=== PATIENT | male | born 1990 | race Caucasian/White ===

== ENCOUNTER 2017-05-22 12:42 | Day surgery (SDC) | payer OTHER ==
[~2017-05-22] VITALS: Ht 170.2 cm; Wt 94.5 kg
[2017-05-22] MEDS: Lactated Ringer's 1,000 ML IV SCH ×4 (05:00→18:30)
[2017-05-22] MEDS: CeFAZolin 2 Gm/50 mL D5W IV Premix IV SCH ×2 (06:00→19:15)
[2017-05-22] MEDS ORDERED: Ondansetron 2 mg/mL 2 mL Inj ONE (12:43)
[2017-05-22] MEDS ORDERED: Dexamethasone 4 mg/mL Inj ONE (12:43)
[2017-05-22] MEDS ORDERED: fentaNYL-PF 50 mCg/mL 2 mL Inj ONE (12:43)
[2017-05-22] MEDS ORDERED: Propofol 10,000 mCg/mL 20 mL Inj ONE (12:43)
[2017-05-22] MEDS ORDERED: Bupivacaine-MPF 0.5% 30 mL Inj INFILTRATE ONE (19:31)
[2017-05-22] MEDS ORDERED: Lactated Ringer's 500 ML IV PRN (19:37)
[2017-05-22] MEDS ORDERED: Lactated Ringer's 1,000 ML IV SCH (19:37)
--- NOTE | 2017-05-22 19:39 | PCM.HPANE ---
Patient Data Surgeon Admitting Provider: Attending Provider:Aramis Rivera MD Primary Care Physician:Jaylon Lee MD Other Provider:Marj Álvarezingham Anesthesia Reason for Visit Left Inguinal Hernia Ht/WT & BMI Height (Feet): 5 Height (Inches): 7 Weight (Kilograms): 94.5 Body Mass Index 0.00 Allergies Coded Allergies: No Known Allergies (Unverified , 05/22/17) Past Anesthesia History Anesthesia History: Denies:: Abnormal Airway, Anesthesia Reactions, Difficult Intubation, Fam Anesthesia Reaction, Fam Malignant Hypertherm, Malignant Hyperthermia Diabetes History Hx Diabetes?: No MRSA MRSA: No Medications Hypertension Medication: No Home Meds Incl Beta Zafar: No No Active Prescriptions or Reported Meds History History of ENT Problems?: Yes HEENT History: Positive for:: Hearing Problem (hx of myringotomies as child) Sinus Problem (seasonal allergies) Denies:: Abnormal Airway Cataracts Difficult Intubation Dysphagia Glaucoma TMJ Denture Type: None Teeth Condition: Within Normal Limits Hx of Heart Problems?: No Cardiovascular History: Denies:: AICD Abdominal Aortic Aneurism Atrial Fibrillation Coronary Artery Disease Edema Heart Murmur Hypertension Irregular Heartbeat Pacemaker Peripheral Vascular Rheumatic Fever Hx of Respiratory Problem?: No Respiratory History: Denies:: Asthma COPD Dyspnea Emphysema Oxygen Administration Pneumonia Tuberculosis Use of C-PAP Machine Use of Inhalers / NEBS Hx Neurologic Problems?: Yes Neurological History: Denies:: CVA Dizziness Headaches Multiple Sclerosis Parkinson's Disease Seizures Other Neurological Pertinent: developmental delay, due to fragile x syndrome Hx of GI Problems?: Yes Other GI Pertinent History: left inguinal hernia current admission problem Hx of Problems?: No Genitourinary History: Denies:: Kidney Stones Urinary Tract Infection Male Hx: Denies:: Prostate Problems Skin History: Denies:: History Skin Disorders? Pressure Ulcers Hx Musculoskeletal Problems?: No Musculoskeletal History: Denies:: Back Injury Degenerative Joint Fibromyalgia Joint Replacement Musculoskeletal Trauma Myasthenia Gravis Osteoarthritis Rheumatoid Arthritis Systemic Lupus Hx of Psycho/Social Problems?: No Psycho Social History: Denies:: Anxiety Hx Depression Hx Surgeries?: Yes (dental, myringotomy tubes) Hx Any Other Health Problems?: Yes Other History: Denies:: Cancer Thyroid Disease History Blood Transfusions: Positive for:: Accept Blood Products? Denies:: Blood Transfusions Hx Diabetes: No Hx Alcohol Use: YesAlcoholic Drinks Per Day: one drink every six monthsHx Substance Use: NoHave You Smoked inLast 12 mo: No Stop/Bang B- Body Mass Index > 35 kg/m2: No A- Age over 50: No N- Neck Large Circumference: No G- Gender Male: No Risk Assessment Category Category 1A: Patient has history of documented sleep apnea, and HAS NOT received any narcotic, sedative or anesthesia administration during this stay. Category 1B: Patient has history of documented sleep apnea, and HAS received any narcotic , sedative or anesthesia administration during this stay Category 2: Patient has SUSPECTED Obstructive Sleep Apnea, and HAS received any narcotic , sedative or anesthesia administration during this stay. Category 3: Patient has SUSPECTED Obstructive Sleep Apnea and HAS NOT received narcotic, sedative or anesthesia administration during this stay. Category 4: Outpatient in Procedural Areas with known sleep apnea or who screen positive for High Risk via the STOP/BANG questionnaire. Exam Exam General Appearance: Alert, Oriented X3 HEENT/AIRWAY: MP 2, Neck Movement (FROM) Lungs: Clear to Auscultation, Clear to Percussion Heart: Exam Unremarkable, Regular Rate/Rhythm Meds/Labs/Diagnostics Admission Meds Current Medications Lactated Ringer's (Lr) 1,000 ml @ 120 mls/hr [id number] IV Last administered on t 17:15; Start 05/22/17 at 05:00; Stop 05/22/17 at 13:19; Status DC Plan Impression Patient chart reviewed, patient interviewed and anesthestic plan with risks, benefits, and alternatives discussed, and informed consent obtained. ASA Physical Status: ASA3 Severe Disease (Fragile X syndrome) Anesthetic Plan: GA Bene/Risks/Altern/Consents: Yes HP Complete Prior to Induction: Yes Other Mother present during interview and consent Mario Ziegler MD May 22, 2017 18:52
[2017-05-22] MEDS ORDERED: fentaNYL-PF 50 mCg/mL 2 mL Inj IVPUSH PRN (19:40)
[2017-05-22] MEDS ORDERED: HYDROmorphone 1 mg/mL Inj IVPUSH PRN (19:40)
[2017-05-22] MEDS ORDERED: Labetalol 5 mg/mL 4 mL Inj IV PRN (19:40)
[2017-05-22] MEDS ORDERED: MetoCLOpramide 5 mg/mL 2 mL Inj IVPUSH PRN (19:40)
[2017-05-22] MEDS ORDERED: Atropine 0.4 mg/mL Inj IVPUSH PRN (19:40)
[2017-05-22] MEDS ORDERED: Phenylephrine 10,000 mCg/mL Inj IVPUSH PRN (19:40)
[2017-05-22] MEDS ORDERED: Ondansetron 2 mg/mL 2 mL Inj IVPUSH PRN (19:40)
[2017-05-22] MEDS ORDERED: EPHEDrine Sulfate 50 mg/mL Inj IVPUSH PRN (19:40)
[2017-05-22 21:50] VITALS: BP 135/98; PULSE 113; RESP 17; O2SAT 99
[2017-05-22] MEDS ORDERED: oxyCODONE-Acetamin 5-325 mg Tablet PO PRN (21:55)
--- NOTE | 2017-05-22 21:58 | PCM.DISURG ---
Surgical Discharge Instruction Date of Service May 22, 2017 Dates of Hospitalization Date of Hospital Admission Providers Admitting Physician: Primary Care Physician: Jaylon Lee MD Attending Physician: Aramis Rivera MD Diet Discharge Diet: No restrictions Activity Discharge Activity-General: Try not to overdue, Be up and about, Activity as pain allows, No lifting >15 pounds for 2 weeks Dressing and Incisional Care Dressing Care: Allow Steri Stripes to fall off, Remove outer dressing after 24 hrs Hygiene: May shower after (24 hours) Follow Up Plan Follow Up Plan Follow up in general surgery clinic in 2-4 days. Please call sooner with any questions or concerns. Call your provider for: Fever, Chills, Increasing abdominal pain, Wound redness , Increasing wound pain, Discharge @ incision, pus discharge Adán Poe MD May 22, 2017 21:58
[2017-05-22 22:07] VITALS: BP 103/87; PULSE 114; RESP 16; O2SAT 96
[2017-05-22 22:12] VITALS: BP 142/67; PULSE 108; RESP 22; O2SAT 94
[2017-05-22 22:18] VITALS: BP 132/77; PULSE 106; RESP 14; O2SAT 96
--- NOTE | 2017-05-22 22:19 | OP ---
[address] [address] OPERATIVE REPORT PATIENT: DORA STONE : 1990 MR#: [id number] ADMIT: 05/22/2017 JOB ID: [id number] DATE OF SURGERY: 05/22/2017 PREOPERATIVE DIAGNOSIS(ES): Incarcerated left inguinal hernia. POSTOPERATIVE DIAGNOSIS(ES): Incarcerated giant left indirect inguinal hernia. PROCEDURE PERFORMED: Open repair of incarcerated left inguinal hernia with mesh. SURGEON: Aramis Rivera MD. MANAGER SHAREPOINT: Adán Poe MD, and Jeremy Sotelo DO. COMPLICATIONS: None. CONDITION OF THE PATIENT: Stable. INDICATIONS: The patient is a 26-year-old gentleman with fragile X syndrome who was found to have a left inguinal hernia on routine physical exam in 2015. At that point, saw my partner, Dr. Tang, but lost medical insurance coverage before he could have the repair. Most of the time, he reports having no pain associated with it, but it does bother him once in a while when he is running during sports. PROCEDURE DETAILS: After discussing the risks, benefits, and alternatives, he was brought to the operating room for open repair with mesh. He was placed in a supine position, underwent smooth induction of general anesthesia. The left groin was prepped and draped in the usual sterile fashion. Surgical time-out was undertaken using safety checklist and all were in agreement. We began by making a groin incision from the pubic tubercle laterally along Ju's lines, dividing the skin and subcutaneous tissue sharply, controlling blood vessels with good hemostasis. After that, we exposed the external oblique aponeurosis and the external inguinal ring and noticed obviously incarcerated hernia protruding through the ring. We then opened the external oblique aponeurosis and dissected the hernia and the contents of the inguinal canal away from the aponeurosis. We then encircled the hernia and the cord structures in a Katarina drain and opened the cremasteric fibers opening the cord. We then identified the giant inguinal scrotal hernia sac with what looked like omentum and dissected it with care preserving the cord structures all the way to the deep inguinal ring. At that point, I reduced the sac contents and performed a high ligation with an 0 PDS and amputated the sac remnant. We then freed up the inguinal floor and repaired the inguinal floor with an appropriately cut 3 x 6 Marlex mesh anchored to the pubic tubercle inferomedially, shelving edge of the inguinal ligament inferiorly, and the rectus abdominis medially, creating a new deep ring between the leaves of the mesh laterally. After that, we closed the external oblique aponeurosis with a running 3-0 Vicryl suture, the Cassandra's with 4-0 Monocryl, skin with running 4-0 Monocryl. Steri-Strips and a sterile dressing were applied. Patient was recovered from anesthesia and was taken to the recovery room in stable condition. SARAH
--- NOTE | 2017-05-22 22:29 | PCM.ANEP1 ---
Post Anesthesia PACU Phase 1 Assessment Vital Signs Vital Signs Date Time Temp Pulse Resp B/P Pulse Ox O2 Delivery O2 Flow Rate FiO2 05/22/17 22:18 106 14 132/77 96 Room Air 05/22/17 22:12 108 22 142/67 94 Room Air 05/22/17 22:07 114 16 103/87 96 Room Air 05/22/17 21:50 36.5 113 17 135/98 99 Simple Mask 8 Anesthetic Administered: GA Level of Alertness: Awake, talking CHOI's with Equal Strength: Yes Pain: No Nausea or Vomiting: No CV Function & Hydration Stable: Yes Airway Device: Oxygen Delivery: Simple Mask Lungs: Clear to Auscultation, Clear to Percussion PACU Phase 2 Assessment Complications: No Follow up Care: No Patient Instructions Provided: N/A Mario Ziegler MD May 22, 2017 22:29
[2017-05-22 22:34] VITALS: BP 133/66; PULSE 100; RESP 18; O2SAT 98
[2017-05-22 22:39] VITALS: BP 131/69; PULSE 103; RESP 12; O2SAT 100
--- NOTE | 2017-05-22 23:35 | NUR ---
Recovery/DC Patient arrived to floor, mother at bedside, drowsy and difficulty keeping eyes open. Shortly after arrival Patient c/o pain given single tablet of Lyndon and patient reports pain tolerable at this time. Tolerated liquids well. Family education for pain management, mother voiced understanding. Care continues Addendum: 05/23/17 at 0009 by BEAR KAUR RN DC Patient wheeled out wearing all belongings. Transporting home with mother. able to self transfer out of bed in to wheel chair needing partial assistance in getting dressed. Mother given discharge instructions, voiced understanding.
== END 2017-05-23 00:09 | disposition home or self-care (01) ==
LOC: SAS 12:42 → OSC 22:49 → SAS 05-23 00:09
PROVIDERS: ATTEND Student in an Organized Health Care Education/Training Program
DX: K40.30 Unilateral inguinal hernia, with obstruction, without gangrene, not specified as recurrent (principal); Q99.2 Fragile X chromosome; R62.50 Unspecified lack of expected normal physiological development in childhood
CPT/HCPCS: 49507; C1781; J0690; J1100; J2250; J2405; J3010; J7120